=== PATIENT | male | born 1970 | race African-American/Black ===

== ENCOUNTER 2017-10-21 09:20 | Emergency (ER) | payer OTHER ==
[2017-10-21] MEDS ORDERED: NITROGLYCERIN (SL) 0.4 MG TAB SL (10:00)
[2017-10-21] MEDS: ASPIRIN 81 MG TAB PO (10:19)
[2017-10-21] MEDS: NITROGLYCERIN 2% 1 GM OINT PKT TD (10:19)
[2017-10-21] MEDS: KETOROLAC 30 MG INJ IV (10:19)
[2017-10-21 10:23] LABS: ADD MAN DIFF? NO
[2017-10-21 10:25] LABS: BASOPHILS % 0.4 % (0.0-2.0); EOSINOPHILS # 0.2 10^3/ul (0.0-0.5); EOSINOPHILS % 2.8 % (0.0-7.0); HEMATOCRIT 38.7 % (42.0-52.0); HEMOGLOBIN 12.9 g/dl (14.0-18.0); LYMPHOCYTES # 2.7 10^3/ul (0.8-2.9); LYMPHOCYTES % 48.2 % (15.0-51.0); MEAN CORPUSCULAR HEMOGLOBIN 29.5 pg (29.0-33.0); MEAN CORPUSCULAR HGB CONC 33.3 g/dl (32.0-37.0); MEAN CORPUSCULAR VOLUME 88.4 fl (82.0-101.0); MONOCYTE # 0.4 10^3/ul (0.3-0.9); MONOCYTES % 7.7 % (0.0-11.0); NEUTROPHIL # 2.3 10^3/ul (1.6-7.5); NEUTROPHILS % 40.7 % (39.0-77.0); PLATELET COUNT 298 10^3/UL (140-415); RED BLOOD COUNT 4.38 10^6/ul (4.70-6.10); RED CELL DISTRIBUTION WIDTH 12.2 % (11.5-14.5)
[2017-10-21 10:25] LABS: WHITE BLOOD COUNT 5.7 10^3/ul (4.8-10.8)
[2017-10-21 10:42] LABS: ANION GAP 17 (8-16); BLOOD UREA NITROGEN 17 mg/dl (7-20); CALCIUM 9.5 mg/dl (8.4-10.2); CARBON DIOXIDE 26 mmol/L (21-31); CHLORIDE 109 mmol/L (97-110); CREATININE 1.15 mg/dl (0.61-1.24); GLUCOSE 84 mg/dl (70-220); POTASSIUM 3.8 mmol/L (3.5-5.1); SODIUM 148 mmol/L (135-144)
[2017-10-21 11:30] LABS: TROPONIN-I < 0.012 ng/ml (0.00-0.12)
== END 2017-10-21 12:04 | disposition home or self-care (01) ==
LOC: E/R 09:20
DX: R07.9 Chest pain, unspecified (principal)
CPT/HCPCS: 36415; 71045; 80048; 84484; 85025; 93005; 96374; 99285-25

== ENCOUNTER 2018-08-07 02:50 | Emergency (ER) | payer OTHER ==
[2018-08-07] MEDS: ONDANSETRON 4 MG INJ IV (03:21)
[2018-08-07] MEDS: morphine 4 MG/ML VIAL IV (03:22)
[2018-08-07] MEDS: SOD CHLORIDE 0.9% 1,000 ML IV (03:22)
== END 2018-08-07 04:59 | disposition home or self-care (01) ==
LOC: E/R 02:50
DX: S20.211A Contusion of right front wall of thorax, initial encounter (principal); M50.320 Other cervical disc degeneration, mid-cervical region, unspecified level; Y04.8XXA Assault by other bodily force, initial encounter
CPT/HCPCS: 70450; 71100; 72125; 73140; 96374; 96375; 99285-25